=== PATIENT | female | born 1945 | race Caucasian/White ===

== ENCOUNTER → 2018-07-19 | Outpatient (CLI) | payer MEDICARE, OTHER ==
[~2018-07-19] MED LIST: AMLO5TAB7 PO; BENA20TA4 PO; BIOT5TAB PO; CALC-62 PO; CHOL2000 PO; LEVO112T2 PO; MAGN400C PO; MELA5TAB19 PO; VIT1TABL32 PO
[2018-07-19 15:43] LABS: BASOPHILS # (AUTO) 0.05 x10^3/uL (0-0.1); BASOPHILS % (AUTO) 1 % (0-1); EOSINOPHILS # (AUTO) 0.26 x10^3/uL (0-0.4); EOSINOPHILS % (AUTO) 3 % (1-7); LYMPHOCYTES # (AUTO) 2.16 x10^3/uL (1-3.4); LYMPHOCYTES % (AUTO) 23 % (22-44); MD NO; MEAN CORPUSCULAR HEMOGLOBIN 30.4 pg (27.0-34.8); MEAN CORPUSCULAR HGB CONC 33.4 g/dL (32.4-35.8); MEAN CORPUSCULAR VOLUME 90.9 fL (80-100); MEAN PLATELET VOLUME 7.8 fL (7.4-10.4); MONOCYTES # (AUTO) 0.55 x10^3/uL (0.2-0.8); MONOCYTES % (AUTO) 6 % (2-9); NEUTROPHILS # (AUTO) 6.56 x10^3/uL (1.8-6.8); NEUTROPHILS % (AUTO) 68 % (42-75); PLATELET COUNT 245 x10^3/uL (130-400); RED BLOOD COUNT 4.73 x10^6/uL (3.82-5.3); RED CELL DISTRIBUTION WIDTH 13.1 % (9.6-15.2)
[2018-07-19 15:48] LABS: ALANINE AMINOTRANSFERASE 28 U/L (12-78); ALBUMIN 3.8 g/dL (3.4-5.0); ANION GAP 9 mmol/L (5-15); CALCIUM 8.5 mg/dL (8.5-10.1); CHLORIDE 104 mmol/L (98-107); CREATININE 0.89 mg/dL (0.55-1.02)
[2018-07-19 15:50] LABS: ALKALINE PHOSPHATASE 43 U/L (45-117); BILIRUBIN,TOTAL 0.4 mg/dL (0.2-1.0); TOTAL PROTEIN 7.1 g/dL (6.4-8.2)
[2018-07-19 15:54] LABS: PROTHROMBIN TIME 10.3 Seconds (9.6-11.5)
== END | disposition home or self-care (01) ==
LOC: EDBD → STAR 14:22 → MERGE 15:00
PROVIDERS: ATTEND Specialist
DX: Z01.818 Encounter for other preprocedural examination (principal); N85.02 Endometrial intraepithelial neoplasia [EIN]
CPT/HCPCS: 36415; 71046; 80053; 85025; 85610; 85730; 86304; 93005

== ENCOUNTER 2018-08-07 10:36 | Observation (INO) | payer MEDICARE, OTHER ==
[~2018-08-07] VITALS: Ht 177.8 cm; Wt 88.0 kg
[~2018-08-07 10:36] MED LIST changes: +BUPIVACAINE/PF-EPI 0.25% 1:200K ONE; +INDOCYANINE GREEN 25 MG VIAL ONE
[2018-08-07] MEDS ORDERED: ACETAMINOPHEN 500 MG TABLET PO ONE (11:30)
[2018-08-07] MEDS ORDERED: ONDANSETRON ODT 8 MG PO ONE (11:30)
[2018-08-07] MEDS ORDERED: GABAPENTIN 300 MG CAPSULE PO ONE (11:30)
[2018-08-07] MEDS ORDERED: PROCHLORPERAZINE 5 MG/ML, 2ML IV PRN (12:00)
[2018-08-07] MEDS ORDERED: OXYcodone 5 MG/5 ML ORAL.SOL UDC PO PRN (12:00)
[2018-08-07] MEDS ORDERED: hydrALAzine 20 MG/ML, 1ML IV PRN (12:00)
[2018-08-07] MEDS ORDERED: MORPHINE SULFATE 4 MG/ML, 1ML IVPush PRN (12:00)
[2018-08-07] MEDS ORDERED: LABETALOL 5MG/ML, 20ML IV PRN (12:00)
[2018-08-07] MEDS ORDERED: MEPERIDINE/PF 25MG/0.5ML IVPush PRN (12:00)
[2018-08-07] MEDS ORDERED: LORazepam 2 MG/ML, 1ML IVPush PRN (12:00)
[2018-08-07] MEDS ORDERED: ALBUTEROL SULFATE 2.5 MG/3 ML NPPB PRN (12:00)
[2018-08-07] MEDS: LACTATED RINGERS 1,000 ML IV SCH (12:08)
[2018-08-07] MEDS ORDERED: CEFAZOLIN 1,000 MG ONE ×2 (13:27)
[2018-08-07] MEDS ORDERED: FENTANYL PF 100 MCG/2ML ONE (13:27)
[2018-08-07] MEDS ORDERED: MIDAZOLAM 1 MG/ML, 2ML ONE (13:27)
[2018-08-07] MEDS ORDERED: PROPOFOL 10 MG/ML, 20ML ONE (13:27)
[2018-08-07] MEDS ORDERED: SUCCINYLCHOLINE 20 MG/ML, 10ML ONE (13:27)
[2018-08-07] MEDS ORDERED: LIDOCAINE-MPF 2% ,5ML ONE ×2 (13:28→15:58)
[2018-08-07] MEDS ORDERED: ROCURONIUM 10MG/ML,5ML ONE ×2 (13:28→15:53)
[2018-08-07] MEDS ORDERED: DEXAMETHASONE 4 MG/ML, 1ML ONE ×2 (13:28)
[2018-08-07] MEDS ORDERED: NEOSTIGMINE 1 MG/ML, 10ML ONE (15:58)
[2018-08-07] MEDS ORDERED: GLYCOPYRROLATE 0.2MG/1ML, 5ML ONE (15:58)
[2018-08-07] MEDS ORDERED: INDOCYANINE GREEN 25 MG VIAL ONE (16:17)
[2018-08-07] MEDS ORDERED: HEPARIN 1,000 UNITS/ML, 10ML IVPB ONE (16:40)
[2018-08-07] MEDS ORDERED: HEPARIN 1,000 UNITS/ML, 10ML ONE (17:50)
[2018-08-07] MEDS ORDERED: LACTATED RINGERS 1,000 ML IV SCH (17:51)
[2018-08-07] MEDS ORDERED: KETOROLAC 30 MG/1 ML IVPush PRN (18:00)
[2018-08-07] MEDS ORDERED: ONDANSETRON 2MG/ML, 2ML IVPush PRN (18:00)
[2018-08-07] MEDS ORDERED: OXYcodone/APAP 5/325MG TABLET PO PRN (18:00)
[2018-08-07] MEDS: FENTANYL PF 100 MCG/2ML IV PRN ×2 (18:22→19:24)
[2018-08-07] MEDS ORDERED: KETOROLAC 30 MG/1 ML ONE (18:37)
[2018-08-07 19:40] VITALS: BP 126/70
[2018-08-08 00:53] VITALS: BP 126/72
[2018-08-08 04:43] LABS: BASOPHILS # (AUTO) 0.01 x10^3/uL (0-0.1); BASOPHILS % (AUTO) 0 % (0-1); EOSINOPHILS % (AUTO) 0 % (1-7); LYMPHOCYTES % (AUTO) 8 % (22-44); MD NO; MEAN CORPUSCULAR HEMOGLOBIN 30.8 pg (27.0-34.8); MEAN CORPUSCULAR HGB CONC 33.7 g/dL (32.4-35.8); MEAN CORPUSCULAR VOLUME 91.3 fL (80-100); MEAN PLATELET VOLUME 8.3 fL (7.4-10.4); MONOCYTES # (AUTO) 0.18 x10^3/uL (0.2-0.8); MONOCYTES % (AUTO) 2 % (2-9); NEUTROPHILS # (AUTO) 9.64 x10^3/uL (1.8-6.8); NEUTROPHILS % (AUTO) 91 % (42-75); PLATELET COUNT 212 x10^3/uL (130-400); RED CELL DISTRIBUTION WIDTH 13.1 % (9.6-15.2)
[2018-08-08 04:54] LABS: ANION GAP 8 mmol/L (5-15); CALCIUM 7.6 mg/dL (8.5-10.1); CHLORIDE 107 mmol/L (98-107); CREATININE 0.84 mg/dL (0.55-1.02)
[2018-08-08 07:48] VITALS: BP 126/74
[2018-08-08] MEDS ORDERED: MELATONIN 5 MG TABLET PO PRN (08:00)
[2018-08-08] MEDS: LACTATED RINGERS 1,000 ML IV SCH (08:48)
[2018-08-08] MEDS ORDERED: MAGNESIUM OXIDE 400 MG TABLET PO SCH (09:00)
[2018-08-08] MEDS ORDERED: CALCIUM/VITAMIN D3 250-125 TABLET PO SCH (09:00)
[2018-08-08] MEDS ORDERED: MULTIVITAMINS/MINERALS TABLET PO SCH (09:00)
[2018-08-08] MEDS ORDERED: BENAZEPRIL 20 MG TABLET PO SCH (09:00)
[2018-08-08] MEDS ORDERED: CHOLECALCIFEROL 1,000 UNIT TABLET PO SCH (09:00)
[2018-08-08] MEDS ORDERED: AMLODIPINE 5 MG TABLET PO SCH (09:00)
[2018-08-08] MEDS ORDERED: OXYC-306 PO (09:16)
[2018-08-08] MEDS ORDERED: ONDA4TAB7 PO (09:17)
[2018-08-09] MEDS ORDERED: LEVOTHYROXINE 112 MCG TABLET PO SCH (06:00)
== END 2018-08-08 10:30 | disposition home or self-care (01) ==
LOC: OUT 10:36 → 3NW 19:53 → DCLOUNGE 08-08 10:06
PROVIDERS: ADMIT Specialist; ATTEND Specialist
DX: D25.1 Intramural leiomyoma of uterus (principal); D25.2 Subserosal leiomyoma of uterus; N85.00 Endometrial hyperplasia, unspecified
CPT/HCPCS: 36415; 58552; 74018; 80048; 85025; 88112; 88305; 88307; G0378; J0330; J0690; J1100; J1644; J1885; J2250; J2704; J2710; J3010; J3490; J7120; Q0162